=== PATIENT | female | born 1935 | race Caucasian/White ===

== ENCOUNTER 2016-08-13 16:40 | Inpatient (IN) ==
[2016-08-13] MEDS ORDERED: SODIUM CHLORIDE 0.9% 1,000 ML IV STA (16:55)
--- NOTE | 2016-08-13 17:00 | EKG Report ---
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
[2016-08-13] MEDS ORDERED: MAGNESIUM SULF RIDER 2 GM in PREMIX 1 EACH IV PRN (17:09)
[2016-08-13] MEDS ORDERED: MAGNESIUM SULF RIDER 4 GM in PREMIX 1 EACH IV PRN (17:09)
--- NOTE | 2016-08-13 17:27 | Emergency Department Note ---
Edin Centeno Brittany, am scribing for, and in the presence of, Beatrice James DO 17:11. Erika Centeno Whitney, DO, personally performed the services described in this documentation, ascribed by Loraine Jesus in my presence, and it is both accurate and complete 727 . Arrival - Arrival Chief Complaint: Arrhythmia/Palpitations ED Nursing Triage Note: pt was transfered from [facility] for a fib. pt has been taken of amiodarone. pt went to [facility] c/o sob and palpitations Mode of Arrival: Stretcher Limitations: No Limitations Source: Patient, RN Notes Reviewed - History of Present Illness HPI Narrative: Patient is a 81 y/o WF with COPD on home O2, DVT on warfarin and known afib seen by Carlos Enrique presenting to the ED from EMS from [facility] for further evaluation of Afib with RVR nonresponsive to diltziem. Patient reports that she initially presented to [facility] earlier today s/p feeling what she describes as some chest discomfort, dizziness and Nausea around 1pm. Patient denies any fever, diaphoresis, SOB, edema of lower extremities, vomiting or urinary sxs. Patient while at [facility] received a bolus of NS and Cardizem 14 mg with initial effect but then BP went into 60s and HR went back up to 160s. Pt reports she feels better than at 1pm today but still has some dizziness that she describes as light headed. In room her current blood pressure if 88/64 mmHg still currently in Afib with RVR. While obtaining a EKG reading, patient was noted to have a spontaneous conversion with which rate decreased to 69 bpm, but patient continued to remain in Atrial Fibrillation. She recently saw Dr Monaco this past Wednesday with which she was told things were fine. She notes that she was taken off of Amiodarone about a year ago. She currently is on Warfarin. Patient denies any history of HI. Patient is dependent on at home oxygen secondary to COPD. Patient is a former smoker, cessation was approximately 22 years ago. Patient has no other complaint/pain in the ED at this time. Onset (ago): hour(s) (4) Consistency: constant Allergies/Adverse Reactions: Allergies Allergy/AdvReac Type Severity Reaction Status Date / Time No Known Allergies Allergy Verified 06/06/15 08:30 Home Medications: Home Medications Medication Instructions Recorded Confirmed Type Ipratropium/Albuterol Inhaler 1 puff INH TID 06/22/14 02/27/16 History [Combivent Respimat Inhaler] Meclizine HCl 25 mg PO DIRECTED PRN 06/22/14 02/27/16 History dilTIAZem HCl [Diltiazem ER] 120 mg PO DAILY 06/22/14 03/10/16 History Warfarin [Coumadin] 3 mg PO DAILY@1800 06/06/15 02/27/16 History Bumetanide Tab [Bumex Tab] 1 mg PO MOWEFR 03/10/16 03/10/16 History Citalopram Hydrobromide [Celexa] 10 mg PO DAILY 03/10/16 03/10/16 History Dexamethasone [Dexamethasone Tab] 2 mg PO DAILY 03/10/16 03/10/16 History Gabapentin Cap/Tab [Neurontin 600 mg PO BEDTIME 03/10/16 03/10/16 History Cap/Tab] Metoclopramide Tab [Reglan Tab] 5 mg PO Q8H PRN 03/10/16 03/10/16 History Omeprazole [Prilosec] 20 mg PO BEDTIME 03/10/16 03/10/16 History Umeclidinium Brm/Vilanterol Tr 1 puff INH DAILY 03/10/16 03/10/16 History [Anoro Ellipta] Review of System - Review of System 12 point system: reviewed and no additional remarkable complaints except as stated - Review of System Constitutional: Absent: chills, diaphoresis, fever Eyes: Absent: vision change Head/Ears/Nose/Throat: Absent: nasal drainage, sore throat Respiratory: Present: respiratory distress Cardiovascular: Present: chest pain, palpitations Gastrointestinal: Absent: abdominal pain, nausea, vomiting, diarrhea, constipation Genitourinary female: Absent: dysuria, frequency, urgency Musculoskeletal: Absent: arm pain, back pain, leg pain, neck pain Skin: Absent: rash Neurological: Absent: headache Psychiatric: Absent: anxiety, depression Hematological/Lymphatic: Absent: easy bleeding, easy bruising Medical,Surgical,& Family Hx - Medical History Cardio: History of: Cardiac Dysrhythmia (A-FIB), Hypertension, Cardiovascular Problems (hx.of tachycardia, palpitations) Neurology: No history of: Seizures HEENT: History of: Eye Problem (cataract surgery) Respiratory: History of: Asthma, COPD, Respiratory Problems (SLEEPS WITH O2) Genitourinary: No history of: Bladder Problem, Kidney Stones Gastrointestinal: History of: Gastrointestinal Cancer (80% of colon was removed 5 years ago), GI Problems (dysphagia) Other: History of: Cancer (hx gastric cancer) - Surgical History Cardiac Surgeries: Patient Denies: Cardiac Catheterization HEENT Surgeries: Surgical HX of: Eye Surgery Patient denies: Tonsilectomy & Adenoidectomy Abdominal Surgeries: Surgical HX of: Abdominal Surgery (removed 80% of stomach) , Appendectomy, Colonoscopy, EGD Patient denies: Cholecystectomy Reproductive Surgeries: Surgical HX of;: Hysterectomy Orthopedic Surgeries: Patient denies;: Total Hip Replacement, Total Knee Replacement - Family History Family History: Reports;: Family Cancer (brother-bladder ca), Family Diabetes ( mother), Family Heart Disease (father-heart attack, sister-heart attack) - Social History Smoking Status: Never smoker Frequency of Alcohol Use: None Type of Drug Use: None Exam Vital Signs: Vital Signs Temperature 98.3 F 08/13/16 16:31 Pulse Rate 72 08/13/16 17:17 Respiratory Rate 15 08/13/16 17:17 Blood Pressure 87/54 08/13/16 17:17 O2 Sat by Pulse Oximetry 100 08/13/16 17:17 - General General appearance: alert, in no apparent distress - Head Head exam: Present: atraumatic, normocephalic, normal inspection - Eye Eye exam: Present: normal appearance, PERRL, EOMI - ENT ENT exam: Present: normal exam, normal oropharynx - Neck Neck exam: Present: normal inspection, full ROM, trachea midline - Chest Chest inspection: Present: normal inspection, symmetric chest wall rise - Respiratory Respiratory exam: Absent: normal lung sounds bilaterally (patient is oxygen dependent via nasal cannula at home secondary to COPD hx, breath sounds are difficult to hear) - Cardiovascular Cardiovascular exam: Present: regular rate, irregular rhythm. Absent: normal rhythm, normal heart sounds (heart sounds are distant upon auscultation) - Abdominal Exam Abdominal exam: Present: soft, normal bowel sounds. Absent: tenderness - Extremities Exam Extremities exam: Present: normal inspection. Absent: pedal edema - Back Exam Back exam: Present: normal inspection - Neurological Exam Neurological exam: Present: alert, oriented X3, CN II-XII intact. Absent: motor sensory deficit - Psychiatric Psychiatric exam: Present: normal affect, normal mood - Skin Skin exam: Present: warm, dry Course - Reevaluation(s) Reevaluation #1: upon second EKG pt noted to have spontaneous conversion from rate of 130s to rate of 69 and symptoms are now gone. Pt given no medication in ED. started on 1L bolus slowly for BP. - Consultations Consultation #1: Dr Ravi called for obs telemetry admission. Results - EKG EKG results: interpreted by ERMD, normal ST/T EKG shows: atrial fibrillation (First EKG showed rate of 127 bpm, Atrial Fibrillation with RVR; Second EKG contained too much artifact; Third EKG showed spontaneous conversion to a rate of 69 bpm, but still in Atrial Fibrillation) Disposition Clinical Impression: Atrial fibrillation with rapid ventricular response Case discussed with: patient Disposition: Still a Patient Condition: Stable
[2016-08-13 17:30] LABS: Basophils % 1.9 % (0.0-0.8); Eosinophils % 1.3 % (0.00-10.9); Hematocrit 37.9 VOL% (35.7-47.0); Lymphocytes # 0.6 10*3/uL (1.4-4.0); Lymphocytes % 37.6 % (21.3-54.2); Mean Corpuscular HGB Conc 31.7 GM/DL (32-36); Mean Corpuscular Hemoglobin 28 PG (27-34); Mean Corpuscular Volume 87.5 FL (87-102); Mean Platelet Volume 9.9 FL (9.6-12.0); Monocytes # 0.3 10*3/uL (0.11-0.8); Monocytes % 15.9 % (1.7-12.7); Neutrophils # 0.7 10*3/uL (1.4-7.4); Neutrophils % 43.3 % (38.7-73.9); Platelet Count 173 T/CUMM (130-400); Red Blood Count 4.33 MC/CUMM (3.8-5.5); Red Cell Distribution Width 13.6 % (9.3-17.3); White Blood Count 1.6 T/CUMM (4-12)
[2016-08-13 18:00] LABS: INR 1.9; PT Patient Result 20.6 SECS; Partial Thromboplastin Time 29.6 SECS (0-40)
[2016-08-13 18:02] LABS: Calcium 8.2 MG/DL (8.5-10.1); Osmolality,Calculated 284.8 MOS/KG (273-304); Potassium 4.7 MMOL/L (3.5-5.1)
[2016-08-13] MEDS ORDERED: ACETAMINOPHEN 325 MG TABLET PO PRN (18:28)
[2016-08-13] MEDS ORDERED: DOCUSATE SODIUM 100 MG CAPSULE PO PRN (18:28)
[2016-08-13 19:19] LABS: Band Neutrophils 1 % (0-10); Lymphocytes 48 % (20-55); Platelet Estimate Normal; Poikilocytosis Slight; Reactive Lymphocytes Few; Segmented Neutrophils 40 % (50-85); Smudge Cells Few; Total Cells Counted 100
[2016-08-13 19:20] LABS: Burr Cells Few; Spherocytes Few
[2016-08-13] MEDS: ALBUTEROL/IPRATROPIUM 3 ML NEB RESP TX SCH (19:26)
[2016-08-13] MEDS: GABAPENTIN 600 MG TABLET PO SCH (21:19)
[2016-08-13] MEDS: ASCORBIC ACID 500 MG TABLET PO SCH (21:20)
[2016-08-13] MEDS: PANTOPRAZOLE 40 MG TABLET PO SCH (21:20)
[2016-08-14 05:36] LABS: Basophils % 2.1 % (0.0-0.8); Eosinophils # 0.2 10*3/uL (0.0-0.87); Eosinophils % 7.7 % (0.00-10.9); Hematocrit 34.3 VOL% (35.7-47.0); Hemoglobin 10.7 GM/DL (12.0-16.0); Lymphocytes # 1.3 10*3/uL (1.4-4.0); Lymphocytes % 66.2 % (21.3-54.2); Mean Corpuscular HGB Conc 31.2 GM/DL (32-36); Mean Corpuscular Hemoglobin 27 PG (27-34); Mean Corpuscular Volume 87.9 FL (87-102); Mean Platelet Volume 10.6 FL (9.6-12.0); Monocytes # 0.4 10*3/uL (0.11-0.8); Neutrophils # 0.1 10*3/uL (1.4-7.4); Platelet Count 173 T/CUMM (130-400); Red Cell Distribution Width 13.8 % (9.3-17.3)
[2016-08-14 05:38] LABS: INR 1.8
[2016-08-14 05:46] LABS: PT Patient Result 20.1 SECS
[2016-08-14 06:33] LABS: Eosinophils 8 % (0-10); Lymphocytes 69 % (20-55); Segmented Neutrophils 4 % (50-85); Total Cells Counted 100
[2016-08-14 06:34] LABS: Hypochromasia 1+; Microcytosis 1+; Ovalocytes Slight; Platelet Estimate Adequate
--- NOTE | 2016-08-14 07:05 | EKG Report ---
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
--- NOTE | 2016-08-14 07:15 | EKG Report ---
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
--- NOTE | 2016-08-14 07:52 | Cardiology History & Physical ---
Assessment and Plan - Time spent with patient Time spent with patient: Greater than 30 minutes (1) Paroxysmal a-fib Status: Chronic Assessment and plan: SEE PLAN OF CARE LISTED BELOW Current Visit: Yes (2) Atrial fibrillation with rapid ventricular response Status: Resolved Assessment and plan: SEE PLAN OF CARE LISTED BELOW Current Visit: Yes (3) COPD (chronic obstructive pulmonary disease) Status: Chronic Assessment and plan: SEE PLAN OF CARE LISTED BELOW Current Visit: Yes (4) On home oxygen therapy Status: Chronic Assessment and plan: SEE PLAN OF CARE LISTED BELOW Current Visit: Yes (5) History of DVT (deep vein thrombosis) Status: Chronic Assessment and plan: SEE PLAN OF CARE LISTED BELOW Current Visit: Yes (6) Former smoker Status: Chronic Assessment and plan: SEE PLAN OF CARE LISTED BELOW Current Visit: Yes (7) Chronic anticoagulation Status: Chronic Assessment and plan: SEE PLAN OF CARE LISTED BELOW Current Visit: Yes History of Present Illness Chief complaint: Atrial fibrillation with rapid ventricular response History of present illness: Professor Of History: Dr. Monaco PCP: Dr. Ospina Ms. Ray is a 81 year old female without known history of coronary artery disease, routinely followed by Dr. Monaco. Patient has cardiac risk factors significant for former smoker (quit 22 years ago), family history of coronary artery disease (father from myocardial infarction at age 91 and sister had myocardial infarction age 95) and sedentary lifestyle. Patient has a past medical history of paroxysmal atrial fibrillation (chronically anticoagulated with Coumadin), COPD (with home oxygen) and DVT. Patient last saw Dr. Josue Monaco August 11, 2016. At that time, she was doing well without any complaints of palpitations or heart racing. Patient was in her usual state of health until yesterday when she developed palpitations and heart racing while at home. She reports also experiencing mild chest discomfort, nausea and lightheadedness with palpitations. She tells me that this has happened before as she has a history of paroxysmal atrial fibrillation. She confirms shortness of breath. However, this is a chronic problem as she has COPD and requires oxygen nightly. Her palpitations continued to progress and she felt that she needed to be further evaluated in the emergency department. She presented to [facility] where she was found to be in atrial fibrillation with rapid ventricular response. Subsequently, she received Cardizem bolus and was transferred to [facility] where she could be further evaluated. Upon arrival to [facility] emergency room, she was noted to be in atrial fibrillation with rapid ventricular response, heart rate of 127. Shortly thereafter, she spontaneously converted. Blood pressure was noted to be 88/64 upon arrival to [facility] ER. Patient reports that she has a history of borderline hypotension. In the past, she has been on diltiazem. However, several months ago Dr. Monaco had to discontinue this medication due to hypotension. Patient has been admitted to cardiology's service and housed on the telemetry floor. Patient was seen and examined on the telemetry unit. She is currently in normal sinus rhythm with occasional PACs. Heart rates in the 60s. Blood pressure borderline low with systolic blood pressures ranging in the 80s. She is currently without complaints. INR this morning is 1.8. Electrolytes are stable with potassium 4.7 and magnesium 2.0. TSH within normal limits. Patient has history of paroxysmal atrial fibrillation. She spontaneously converted to normal sinus rhythm last night. In the past, patient has been on diltiazem. However, a couple of months ago this was discontinued due to hypotension. This hospitalization, patient has been borderline hypotensive with systolic blood pressure ranging in the 80s. At this point, I am hesitant to initiate AV adia blocking agents as patient's blood pressure will not allow. I will discuss this with Dr. Lopez and await his additional recommendations. Patient is on Coumadin for stroke prevention. INR is 1.8. We will continue patient's Coumadin and monitor INR daily. Further plan and addendum to follow per Dr. Jha. ASSESSMENT/PLAN: 1. ATRIAL FIBRILLATION WITH RVR - Patient has history of paroxysmal atrial fibrillation. She spontaneously converted to normal sinus rhythm last night. In the past, patient has been on diltiazem. However, a couple of months ago this was discontinued due to hypotension. This hospitalization, patient has been borderline hypotensive with systolic blood pressure ranging in the 80s. At this point, I am hesitant to initiate AV adia blocking agents as patient's blood pressure will not allow. I will discuss this with Dr. Lopez and await his additional recommendations. Patient is on Coumadin for stroke prevention. INR is 1.8. We will continue patient's Coumadin and monitor INR daily. 2. CHRONIC ANTICOAGULATION - Patient is chronically anticoagulated with Coumadin as she has a history of paroxysmal atrial fibrillation and DVT. We will continue patient's Coumadin and monitor her INR daily. INR today is 1.8. 3. COPD, ON HOME OXYGEN - This is clinically stable this admission. Will continue patient's home medications. 4. HISTORY OF DVT - Continue Coumadin. Daily INR. 5. FORMER SMOKER - Patient is a former smoker. Reports that she quit approximately 22 years ago. Home Medications Medication Instructions Recorded Confirmed Type Ipratropium/Albuterol Inhaler 1 puff INH TID 06/22/14 08/13/16 History [Combivent Respimat Inhaler] Warfarin [Coumadin] 3 mg PO DAILY@1800 06/06/15 08/13/16 History Citalopram Hydrobromide [Celexa] 10 mg PO DAILY 03/10/16 08/13/16 History Gabapentin Cap/Tab [Neurontin 600 mg PO BEDTIME 03/10/16 08/13/16 History Cap/Tab] Omeprazole [Prilosec] 20 mg PO BEDTIME 03/10/16 08/13/16 History Umeclidinium Brm/Vilanterol Tr 1 puff INH DAILY 03/10/16 08/13/16 History [Anoro Ellipta] Bumetanide [Bumetanide] 1 mg PO MOWEFR 08/13/16 08/13/16 History Allergies Allergy/AdvReac Type Severity Reaction Status Date / Time No Known Allergies Allergy Verified 06/06/15 08:30 - Constitutional Constitutional: Present: fatigue. Absent: daytime sleepiness, fever(s), frequent falls, headache(s), weakness, weight gain, weight loss - Cardiovascular Cardiovascular: Present: as per HPI, diaphoresis, dyspnea (Chronic, patient has COPD with home oxygen.), lightheadedness, palpitations. Absent: edema, radiating jaw, neck or arm pain, orthopnea, PND - Respiratory Respiratory: Present: cough (Chronic), dyspnea (Chronic). Absent: hemoptysis, wheezing, snoring, pain on inspiration, change in phlegm color - Gastrointestinal Gastrointestinal: Present: nausea. Absent: abdominal pain, change in bowel habits, coffee ground emesis, constipation, heartburn, hematemesis, hematochezia , loose stools, melena, vomiting - Neurological Neurological: Present: dizziness. Absent: abnormal gait, abnormal speech, behavioral changes, frequent falls, numbness, paresthesias, syncope Medical,Surgical,& Family Hx - Medical History Cardio: History of: Cardiac Dysrhythmia (A-FIB), Cardiovascular Problems (hx.of tachycardia, palpitations) HEENT: History of: Eye Problem (cataract surgery) Respiratory: History of: Asthma, COPD, Respiratory Problems (SLEEPS WITH O2) Genitourinary: No history of: Bladder Problem, Kidney Stones Gastrointestinal: History of: GERD, Gastrointestinal Cancer (80% of colon was removed 5 years ago), GI Problems (dysphagia) Other: History of: Cancer (hx gastric cancer) - Surgical History Cardiac Surgeries: Patient Denies: Cardiac Catheterization HEENT Surgeries: Surgical HX of: Eye Surgery Patient denies: Tonsilectomy & Adenoidectomy Abdominal Surgeries: Surgical HX of: Abdominal Surgery (removed 80% of stomach) , Appendectomy, Colonoscopy, EGD Patient denies: Cholecystectomy Reproductive Surgeries: Surgical HX of;: Hysterectomy Orthopedic Surgeries: Patient denies;: Total Hip Replacement, Total Knee Replacement - Family History Family History: Reports;: Family Cancer (brother-bladder ca), Family Diabetes ( mother), Family Heart Disease (father-heart attack, sister-heart attack) - Social History Smoking Status: Former smoker Frequency of Alcohol Use: None Type of Drug Use: None Marital Status: Single Lives With:: Sibling Functional capacity: independent ambulation Cardiology Physical Exam - Constitutional Vitals: Vital Signs Temp Pulse Resp BP Pulse Ox 96.7 F L 59 L 18 82/53 93 L 08/14/16 04:00 08/14/16 04:00 08/14/16 06:00 08/14/16 04:00 08/14/16 04:00 Intake and Output 08/13/16 08/14/16 08/14/16 22:59 06:59 14:59 Intake Total 1240 / 1240 0 / 0 Output Total 725 / 725 0 / 0 Balance 515 / 515 0 / 0 Intake: IV 1000 / 1000 Ns 1,000 ml @ 500 mls/hr 1000 / 1000 IV 1X ED BOLUS STA Rx#: [id number] Oral 240 / 240 0 / 0 Output: Urine 725 / 725 0 / 0 Other: Voiding Method Urinal Weight 128 lb 1.6 oz 128 lb Exam: General: Appears well with no apparent distress. Pleasant and cooperative. Appears comfortable. HEENT: PERRL, normocephalic, atraumatic. Mucous membranes moist. No jaundice noted. Conjunctiva moist and clear, sclerae anicteric Neck: No JVD/HJR, no thyromegaly or lymphadenopathy noted. No carotid bruit appreciated Cardiac: Regular rate and rhythm. No murmur rub or gallop. Lungs: Clear to auscultation without accessory muscle use to assist the respiratory pattern. No wheezing auscultated. Requiring oxygen via nasal cannula. Abdomen: Soft, bowel sounds normoactive. Nontender and nondistended. Extremities: No clubbing, cyanosis noted. No edema noted. Upper extremity pulses 2+. Lower extremity pulses 2+. Capillary refill less than 3 seconds. Skin: No unusual lesions or rashes. No skin breakdown appreciated. Neuro: Awake, alert and oriented 3. Moves all extremities well without hemiparesis or paralysis. No essential tremor is appreciated. Result/EKG - Labs CBC & BMP: 08/14/16 04:12 08/13/16 17:13 Lab Results: I have reviewed the past 24 hour labs Labs: Laboratory Results - last 24 hr 08/13/16 08/13/16 08/13/16 17:13 17:13 17:20 WBC 1.6 L RBC 4.33 Hgb 12.0 Hct 37.9 MCV 87.5 MCH 28 MCHC 31.7 L RDW 13.6 Plt Count 173 MPV 9.9 Neut % (Auto) 43.3 Lymph % (Auto) 37.6 Rush % (Auto) 15.9 H Eos % (Auto) 1.3 Baso % (Auto) 1.9 H Neut # (Auto) 0.7 L Lymph # (Auto) 0.6 L Rush # (Auto) 0.3 Eos # (Auto) 0.0 Baso # (Auto) 0.0 Total Counted 100 Immature Gran % 0.0 Nucleated RBC % 0.0 Immature Gran # 0.00 Segmented Neutrophils 40 L Band Neutrophils 1 Lymphocytes 48 Monocytes 11 Eosinophils Basophils Nucleated RBCs # 0.00 Atypic/Reactive Lymphs Few Smudge Cells Few Platelet Estimate Normal Hypochromasia Poikilocytosis Slight Microcytosis Spherocytes Few Ovalocytes Antoinette Cells Few INR 1.9 PT Patient/Control Mix 20.6 Circ Anticoag PTT 29.6 Sodium 144 Potassium 4.7 Chloride 111 H Carbon Dioxide 28 Anion Gap 9.7 BUN 11 Creatinine 0.70 GFR Calculation 78 BUN/Creatinine Ratio 15.00 Glucose 98 Calculated Osmolality 284.8 Calcium 8.2 L Magnesium 2.0 TSH 3rd Generation 08/14/16 08/14/16 08/14/16 04:12 04:12 04:12 WBC 2.0 L RBC 3.90 Hgb 10.7 L Hct 34.3 L MCV 87.9 MCH 27 MCHC 31.2 L RDW 13.8 Plt Count 173 MPV 10.6 Neut % (Auto) 4.0 L Lymph % (Auto) 66.2 H Rush % (Auto) 20.0 H Eos % (Auto) 7.7 Baso % (Auto) 2.1 H Neut # (Auto) 0.1 L Lymph # (Auto) 1.3 L Rush # (Auto) 0.4 Eos # (Auto) 0.2 Baso # (Auto) 0.0 Total Counted 100 Immature Gran % 0.0 Nucleated RBC % 0.0 Immature Gran # 0.00 Segmented Neutrophils 4 L Band Neutrophils Lymphocytes 69 H Monocytes 17 H Eosinophils 8 Basophils 2.0 H Nucleated RBCs # 0.00 Atypic/Reactive Lymphs Smudge Cells Platelet Estimate Adequate Hypochromasia 1+ Poikilocytosis Microcytosis 1+ Spherocytes Ovalocytes Slight Donald Cells INR 1.8 PT Patient/Control Mix 20.1 Circ Anticoag PTT Sodium Potassium Chloride Carbon Dioxide Anion Gap BUN Creatinine GFR Calculation BUN/Creatinine Ratio Glucose Calculated Osmolality Calcium Magnesium TSH 3rd Generation 0.448 Quality Measures - VTE Contraindication to Pharmacological VTE Prophylaxis: Coagulopathy
[2016-08-14] MEDS: ALBUTEROL/IPRATROPIUM 3 ML NEB RESP TX SCH ×3 (08:30→19:10)
[2016-08-14] MEDS ORDERED: ANORO ELLIPTA INH SCH (09:00)
[2016-08-14] MEDS ORDERED: CITALOPRAM 20 MG TABLET PO SCH (09:00)
[2016-08-14] MEDS: ASCORBIC ACID 500 MG TABLET PO SCH ×2 (09:00→20:38)
--- NOTE | 2016-08-14 09:10 | XRay Report ---
XR chest 1V portable Indication: Shortness of breath Comparison: 13 August 2016 Findings: The heart and mediastinum are stable in size and configuration. Multiple clips are present in the right hilum from previous surgery. The pulmonary vascularity is slightly increased with bilateral increased interstitial lung density. Small amount of left lower lung increased density seen in the costophrenic angle. No other lung infiltrates, effusions, pneumothorax or other abnormality is demonstrated. Impression: Findings suggest mild cardiac decompensation. Small amount of increased left lower lung density, could indicate pneumonia. No other acute findings. PROCEDURE INTERPRETED AT [facility] DEPARTMENT OF RADIOLOGY Final Report Signed by: Dr. Vini David
[2016-08-14 09:59] LABS: Apearance,Urine CLEAR (Clear); Bilirubin,Urine Negative (Negative); Blood, Urine Negative (Negative); Glucose,Urine (UA) Negative (Negative); Hyaline Casts,Urine 2 /LPF (0-3); Ketones,Urine Negative (Negative); Mucus,Urine Few /LPF (Occasional); Nitrite,Urine Negative (Negative); Protein,Urine Negative; RBC,Urine 1 /HPF (0-4); Squamous Epithelial Cell,Urine Occasional /HPF (0-10); Urine Color Yellow (Yellow); Urine Specific Gravity 1.018 (1.001-1.035); Urine Urobilinogen < 2.0 EU/DL (0.2-1.0); WBC,Urine 1 /HPF (0-6)
[2016-08-14] MEDS: DILTIAZEM INJ 100 MG in SODIUM CHLORIDE 0.9% 100 ML IV SCH ×2 (11:20→17:30)
--- NOTE | 2016-08-14 11:47 | EKG Report ---
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
[2016-08-14] MEDS ORDERED: WARFARIN 3 MG TABLET PO SCH (18:00)
[2016-08-14] MEDS: GABAPENTIN 600 MG TABLET PO SCH (20:37)
[2016-08-14] MEDS: FLECAINIDE 50 MG TABLET PO SCH (20:38)
[2016-08-14] MEDS: PANTOPRAZOLE 40 MG TABLET PO SCH (20:38)
[2016-08-15 04:54] LABS: Eosinophils # 0.2 10*3/uL (0.0-0.87); Hematocrit 33.4 VOL% (35.7-47.0); Hemoglobin 10.5 GM/DL (12.0-16.0); Lymphocytes # 1.2 10*3/uL (1.4-4.0); Lymphocytes % 59.8 % (21.3-54.2); Mean Corpuscular HGB Conc 31.4 GM/DL (32-36); Mean Corpuscular Hemoglobin 28 PG (27-34); Mean Corpuscular Volume 87.7 FL (87-102); Mean Platelet Volume 10.2 FL (9.6-12.0); Monocytes # 0.3 10*3/uL (0.11-0.8); Monocytes % 17.1 % (1.7-12.7); Neutrophils # 0.2 10*3/uL (1.4-7.4); Neutrophils % 12.1 % (38.7-73.9); Platelet Count 160 T/CUMM (130-400); Red Blood Count 3.81 MC/CUMM (3.8-5.5); Red Cell Distribution Width 13.9 % (9.3-17.3)
[2016-08-15 05:19] LABS: Calcium 8.4 MG/DL (8.5-10.1); Calcium 8.5 MG/DL (8.5-10.1); Magnesium 1.9 MG/DL (1.8-2.4); Osmolality,Calculated 284.8 MOS/KG (273-304); Potassium 3.9 MMOL/L (3.5-5.1)
[2016-08-15 05:21] LABS: Band Neutrophils 1 % (0-10); Eosinophils 8 % (0-10); Lymphocytes 69 % (20-55); Myelocytes 1 %; Platelet Estimate Normal; Segmented Neutrophils 13 % (50-85); Total Cells Counted 99
[2016-08-15] MEDS: ALBUTEROL/IPRATROPIUM 3 ML NEB RESP TX SCH (07:19)
[2016-08-15 07:30] VITALS: BP 123/59
--- NOTE | 2016-08-15 07:44 | EKG Report ---
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
[2016-08-15] MEDS: FLECAINIDE 50 MG TABLET PO SCH (09:09)
[2016-08-15] MEDS: ASCORBIC ACID 500 MG TABLET PO SCH (09:09)
--- NOTE | 2016-08-15 09:24 | Cardiology Progress Note ---
Assessment and Plan - Time spent with patient Time spent with patient: Less than 30 minutes (1) COPD (chronic obstructive pulmonary disease) Status: Chronic Current Visit: Yes (2) History of DVT (deep vein thrombosis) Status: Chronic Current Visit: Yes (3) Former smoker Status: Chronic Current Visit: Yes (4) Chronic anticoagulation Status: Chronic Current Visit: Yes (5) Paroxysmal a-fib Status: Chronic Current Visit: Yes Cardiology - PN: Subj Interval history: The patient remains in normal sinus rhythm and has no complaints she is again asking for discharge. Her EKG today looks good her QT interval yesterday was 410 msec today is 411. She has not had any more atrial fibrillation. She has now received 2 doses of flecainide. She is desiring to go home I would really feel better if she would wait for 5 doses to ensure her QT interval is not prolonged and there is no significant abnormalities or dysrhythmias. Exam (Progress Note) - Constitutional Vitals: Period Temp Pulse Resp BP Sys/[place] Pulse Ox Last 24 Hr 97.9 F-99.4 F 59-81 16-20 110-123/56-71 93-98 General appearance: normal weight - Head Head exam: Present: normal inspection - Eye Eye exam: Present: EOMI Pupils: Present: ELVIN - Neck Neck exam: Present: normal inspection - Respiratory Respiratory exam: Present: clear to auscultation bilaterally - Cardiovascular Cardiovascular exam: Present: regular rate and rhythm - GI/Abdominal GI/Abdominal exam: Present: normal bowel sounds Result/EKG - Labs CBC & BMP: 08/15/16 03:50 08/15/16 03:50 Labs: Laboratory Results - last 24 hr 08/14/16 08/15/16 08/15/16 09:53 03:50 03:50 WBC 2.0 L RBC 3.81 Hgb 10.5 L Hct 33.4 L MCV 87.7 MCH 28 MCHC 31.4 L RDW 13.9 Plt Count 160 MPV 10.2 Neut % (Auto) 12.1 L Lymph % (Auto) 59.8 H [place] % (Auto) 17.1 H Eos % (Auto) 9.0 Baso % (Auto) 2.0 H Neut # (Auto) 0.2 L Lymph # (Auto) 1.2 L [place] # (Auto) 0.3 Eos # (Auto) 0.2 Baso # (Auto) 0.0 Total Counted 99 Immature Gran % 0.0 Nucleated RBC % 0.0 Immature Gran # 0.00 Segmented Neutrophils 13 L Band Neutrophils 1 Lymphocytes 69 H Monocytes 7 Eosinophils 8 Myelocytes 1 Nucleated RBCs # 0.00 Platelet Estimate Normal 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 Sodium 144 Potassium 3.9 Chloride 109 H Carbon Dioxide 29 Anion Gap 9.9 BUN 12 Creatinine 0.50 L GFR Calculation 87 BUN/Creatinine Ratio 24.00 H Glucose 82 Calculated Osmolality 284.8 Calcium 8.4 L Magnesium 1.9 Urine Color Yellow Urine Appearance Clear Urine pH 5.0 Ur Specific [place] 1.018 Urine Protein Negative Urine Glucose (UA) Negative Urine Ketones Negative Urine Blood Negative Urine Nitrate Negative Urine Bilirubin Negative Urine Urobilinogen < 2.0 H Urine Leukocytes Negative Urine RBC 1 Urine WBC 1 Ur Squamous Epith Cells Occasional Hyaline Casts 2 Urine Mucus Few Ur Culture Indicated? Not indicated 08/15/16 03:50 WBC RBC Hgb Hct MCV MCH MCHC RDW Plt Count MPV Neut % (Auto) Lymph % (Auto) [place] % (Auto) Eos % (Auto) Baso % (Auto) Neut # (Auto) Lymph # (Auto) [place] # (Auto) Eos # (Auto) Baso # (Auto) Total Counted Immature Gran % Nucleated RBC % Immature Gran # Segmented Neutrophils Band Neutrophils Lymphocytes Monocytes Eosinophils Myelocytes Nucleated RBCs # Platelet Estimate Pappenheimer Bodies Sodium 144 Potassium 3.9 Chloride 109 H Carbon Dioxide 30 Anion Gap 8.9 BUN 12 Creatinine 0.50 L GFR Calculation 87 BUN/Creatinine Ratio 24.00 H Glucose 81 Calculated Osmolality 284.8 Calcium 8.5 Magnesium Urine Color Urine Appearance Urine pH Ur Specific [place] Urine Protein Urine Glucose (UA) Urine Ketones Urine Blood Urine Nitrate Urine Bilirubin Urine Urobilinogen Urine Leukocytes Urine RBC Urine WBC Ur Squamous Epith Cells Hyaline Casts Urine Mucus Ur Culture Indicated? Quality Measures - VTE Contraindication to Pharmacological VTE Prophylaxis: Coagulopathy
--- NOTE | 2016-08-15 09:44 | Discharge Summary ---
Hospital Course - Hospital Course Hospital Course: Patient came to the hospital with A. fib with RVR. She has had problems with both bradycardia and hypotension on AV adia blocking agents. She is anticoagulated with warfarin and was subtherapeutic. She was started on 50 mg of flecainide twice daily and remained in sinus rhythm after spontaneous conversion with IV Cardizem at the outside hospital. She had 3 doses of flecainide and had no change in her EKG her QTc interval was 410 and 411 seconds respectively. She has been hemodynamically stable her blood pressure heart rate have both improved. She will be discharged home she will follow-up in [address] Monaco with EKG. We will also have her INR rechecked. - Time spent with patient Time with patient DS: Less than 30 minutes Diagnosis - Discharge Diagnosis (1) COPD (chronic obstructive pulmonary disease) Status: Chronic (2) History of DVT (deep vein thrombosis) Status: Chronic (3) Former smoker Status: Chronic (4) Chronic anticoagulation Status: Chronic (5) Paroxysmal a-fib Status: Chronic (6) Hypotension Status: Chronic (7) Bradycardia Status: Chronic Specialty Discharge - Follow Up or Referrals Follow up with: Markie Monaco MD [Physician] - 1 Week (ECG, chem 7, mg cbc and INR clinic) Discharge Plan - Discharge Data Disposition: Disch To Home/Self Care Condition at Discharge: Stable Discharge Diet: advance to your usual diet Activity: resume usual activities as tolerated Hygiene: no restrictions, may shower, may tub bathe, keep area(s) dry Weight Bearing at Discharge: full weight bearing Driving: no restrictions Contact your physician if you experience:: fever over 101, Difficulty voiding, Redness or swelling, Nausea/Vomiting, Shortness of breath, Bleeding - Discharge Medications New Acetaminophen Tab [Tylenol Tab] 325 mg PO Q4H PRN tablet PRN Reason: fever, headache/body aches Ascorbic Acid Tab [Vitamin C Tab] 1,000 mg PO BID tablet Flecainide [Tambocor] 50 mg PO BID #180 tablet Continue Ipratropium/Albuterol Inhaler [Combivent Respimat Inhaler] 1 puff INH TID Warfarin [Coumadin] 3 mg PO DAILY@1800 Gabapentin Cap/Tab [Neurontin Cap/Tab] 600 mg PO BEDTIME Omeprazole [Prilosec] 20 mg PO BEDTIME Bumetanide 1 mg PO MOWEFR Umeclidinium Brm/Vilanterol Tr [Anoro Ellipta] 1 puff INH DAILY Discontinued Citalopram Hydrobromide [Celexa] 10 mg PO DAILY - Follow Up or Referral - Forms/Instructions Exam - Constitutional Vitals: Period Temp Pulse Resp BP Sys/Larsen Pulse Ox Last 24 Hr 97.9 F-99.4 F 59-81 16-20 110-123/56-71 93-98 General appearance: normal weight - Head Head exam: Present: normal inspection - Eye Eye exam: Present: EOMI Pupils: Present: ELVIN - ENT ENT exam: Present: normal exam - Neck Neck exam: Present: normal inspection - Respiratory Respiratory exam: Present: clear to auscultation bilaterally - Cardiovascular Cardiovascular exam: Present: regular rate and rhythm - GI/Abdominal GI/Abdominal exam: Present: normal bowel sounds - Extremities Exam Extremities exam: Present: normal inspection - Back Exam Back exam: Present: normal inspection - Neurological Exam Neurological exam: Present: alert, oriented X3 Discharge Results Labs on day of discharge: Labs from last 24 hours 08/15/16 08/15/16 08/15/16 03:50 03:50 03:50 WBC 2.0 L RBC 3.81 Hgb 10.5 L Hct 33.4 L MCV 87.7 MCH 28 MCHC 31.4 L RDW 13.9 Plt Count 160 MPV 10.2 Neut % (Auto) 12.1 L Lymph % (Auto) 59.8 H [place] % (Auto) 17.1 H Eos % (Auto) 9.0 Baso % (Auto) 2.0 H Neut # (Auto) 0.2 L Lymph # (Auto) 1.2 L [place] # (Auto) 0.3 Eos # (Auto) 0.2 Baso # (Auto) 0.0 Total Counted 99 Immature Gran % 0.0 Nucleated RBC % 0.0 Immature Gran # 0.00 Segmented Neutrophils 13 L Band Neutrophils 1 Lymphocytes 69 H Monocytes 7 Eosinophils 8 Myelocytes 1 Nucleated RBCs # 0.00 Platelet Estimate Normal Pappenheimer Bodies Warp Tension Tester Sodium 144 144 Potassium 3.9 3.9 Chloride 109 H 109 H Carbon Dioxide 30 29 Anion Gap 8.9 9.9 BUN 12 12 Creatinine 0.50 L 0.50 L GFR Calculation 87 87 BUN/Creatinine Ratio 24.00 H 24.00 H Glucose 81 82 Calculated Osmolality 284.8 284.8 Calcium 8.5 8.4 L Magnesium 1.9 Urine Color Urine Appearance Urine pH Ur Specific [place] Urine Protein Urine Glucose (UA) Urine Ketones Urine Blood Urine Nitrate Urine Bilirubin Urine Urobilinogen Urine Leukocytes Urine RBC Urine WBC Ur Squamous Epith Cells Hyaline Casts Urine Mucus Ur Culture Indicated? 08/14/16 09:53 WBC RBC Hgb Hct MCV MCH MCHC RDW Plt Count MPV Neut % (Auto) Lymph % (Auto) [place] % (Auto) Eos % (Auto) Baso % (Auto) Neut # (Auto) Lymph # (Auto) [place] # (Auto) Eos # (Auto) Baso # (Auto) Total Counted Immature Gran % Nucleated RBC % Immature Gran # Segmented Neutrophils Band Neutrophils Lymphocytes Monocytes Eosinophils Myelocytes Nucleated RBCs # Platelet Estimate Pappenheimer Bodies Sodium Potassium Chloride Carbon Dioxide Anion Gap BUN Creatinine GFR Calculation BUN/Creatinine Ratio Glucose Calculated Osmolality Calcium Magnesium Urine Color Yellow Urine Appearance Clear Urine pH 5.0 Ur Specific [place] 1.018 Urine Protein Negative Urine Glucose (UA) Negative Urine Ketones Negative Urine Blood Negative Urine Nitrate Negative Urine Bilirubin Negative Urine Urobilinogen < 2.0 H Urine Leukocytes Negative Urine RBC 1 Urine WBC 1 Ur Squamous Epith Cells Occasional Hyaline Casts 2 Urine Mucus Few Ur Culture Indicated? Not indicated - Imaging and Cardiology Cardiology Procedure: other (ECGs read by me.) DS: Provider Date of admission: 08/13/16 17:09 Primary care physician: . No PCP Attending physician on admission: Oc Ravi MD Discharging clinician: Yadi Lopez DO
--- NOTE | 2016-08-17 12:56 | Physician Query Form ---
CLICK EDIT DOCUMENT TO SELECT QUERY ANSWER --> OK --> SIGN Rosalee Parker RN Clinical Bacteriologist [employer]) [phone] (f) [phone] [email or web address] PROVIDERS: Make your selection(s) from the choices in EACH section by typing an "x" and enter comments in the comment section. Please use your independent medical judgment in providing your response. This request does not imply that any particular answer is desired or expected. CLINICAL INDICATORS: (Providers should not edit this section) Based on documentation of "Patient is dependent on at home oxygen secondary to COPD". Based on the above, could you clarify the appropriate diagnosis, if significant , that supports the above abnormalities and additional evaluation, monitoring, and/or treatment rendered: ( ) Pt. has chronic respiratory failure ( ) Pt. does not have chronic respiratory failure ( ) Other, please specify: ( X) Clinically unable to determine COMMENTS: PLEASE ALSO DOCUMENT RESPONSE IN PROGRESS NOTES AND/OR DISCHARGE SUMMARY Use of terms such as suspected, likely, or probable (associated with a specific diagnosis that is being evaluated, monitored, or treated as if it exists) are acceptable and can be restated in the discharge summary if not ruled out. [facility]
== END 2016-08-15 12:25 | disposition home or self-care (01) | DRG 310 ==
LOC: N.ED 16:40 → N.EDINP 17:09 → N.TELES 18:06
PROVIDERS: ADMIT Internal Medicine Cardiovascular Disease; ATTEND Internal Medicine Cardiovascular Disease

== ENCOUNTER 2021-01-17 06:25 | Inpatient (IN) ==
[2021-01-17] MEDS ORDERED: ALBUTEROL/IPRATROPIUM 3 ML NEB RESP TX STA (07:14)
[2021-01-17] MEDS ORDERED: methylPREDNISolone SOD SUC 125 MG/2 ML VIAL IV STA (07:14)
[2021-01-17] MEDS ORDERED: methylPREDNISolone SOD SUC 125 MG/2 ML VIAL ONE (07:26)
[2021-01-17] MEDS ORDERED: ALBUTEROL/IPRATROPIUM 3 ML NEB RESP TX ONE (07:27)
[2021-01-17 07:32] LABS: Basophils % 0.5 % (0.0-0.8); Hematocrit 46.4 VOL% (35.7-47.0); Hemoglobin 13.6 GM/DL (12.0-16.0); Immature Granulocytes % 0.5 %; Immature Granulocytes Absolute 0.01 #; Lymphocytes # 0.3 10*3/uL (1.4-4.0); Lymphocytes % 17.8 % (21.3-54.2); Mean Corpuscular HGB Conc 29.3 GM/DL (32-36); Mean Corpuscular Volume 97.3 FL (87-102); Mean Platelet Volume 9.3 FL (9.6-12.0); Monocytes % 13.5 % (1.7-12.7); Neutrophils % 67.7 % (38.7-73.9); Platelet Count 173 T/CUMM (130-400); Red Blood Count 4.77 MC/CUMM (3.8-5.5); Red Cell Distribution Width 13.3 % (9.3-17.3); White Blood Count 1.9 T/CUMM (4-12)
[2021-01-17 07:41] LABS: Albumin 3.5 G/DL (3.4-5.0); Calcium 9.3 MG/DL (8.5-10.1); Osmolality,Calculated 279.5 MOS/KG (273-304); Potassium 4.2 MMOL/L (3.5-5.1); Total Protein 7.5 G/DL (6.4-8.2)
[2021-01-17 08:07] LABS: Atypical Lymphocytes Few; Band Neutrophils 3 % (0-10); Hypochromasia Slight; Lymphocytes 18 % (20-55); Metamyelocytes 1 %; Ovalocytes Slight; Platelet Estimate Adequate; Polychromasia Slight; Segmented Neutrophils 67 % (50-85); Total Cells Counted 100
[2021-01-17 08:47] LABS: ABG Base Excess 5.7 MMOL/L (-2.5-2.5); ABG HCO3 29.4 MMOL/L (20-26); ABG Oxygen Saturation 93.3 % (95-100); ABG PH 7.332 (7.35-7.45); ABG PO2 72.9 MM HG (80-95)
[2021-01-17 10:07] LABS: ABG Base Excess 6.6 MMOL/L (-2.5-2.5); ABG HCO3 30.2 MMOL/L (20-26); ABG Oxygen Saturation 88.4 % (95-100); ABG PCO2 56.9 MM HG (35-48); ABG PO2 57.2 MM HG (80-95); ABG TCO2 29.7 MMOL/L (23-27)
[2021-01-17] MEDS ORDERED: METOCLOPRAMIDE 5 MG TABLET PO PRN (10:52)
[2021-01-17] MEDS ORDERED: GLUCAGON 1 MG VIAL IM PRN (10:57)
[2021-01-17] MEDS ORDERED: CALCIUM CARBONATE CHEW 500 MG TABLET PO PRN (11:07)
[2021-01-17] MEDS ORDERED: DOCUSATE SODIUM 100 MG CAPSULE PO PRN (11:07)
[2021-01-17] MEDS ORDERED: SIMETHICONE CHEW 125 MG TABLET PO PRN (11:07)
[2021-01-17] MEDS ORDERED: DEXTROSE 50% 25 GM/50 ML SYRINGE IV PRN (11:16)
[2021-01-17] MEDS ORDERED: ENOXAPARIN 40 MG/0.4 ML SYRINGE SUBCUT SCH (11:30)
[2021-01-17] MEDS ORDERED: PANTOPRAZOLE 40 MG TABLET PO ONE (11:55)
[2021-01-17] MEDS ORDERED: CITALOPRAM 20 MG TABLET ONE (11:55)
[2021-01-17] MEDS ORDERED: ENOXAPARIN 40 MG/0.4 ML SYRINGE ONE (11:55)
[2021-01-17] MEDS ORDERED: LEVOFLOXACIN INJ 750 MG/150 ML PREMIX IV ONE (11:56)
[2021-01-17 12:06] LABS: INR 4.1; PT Patient Result 41.5 SECS (10.5-12.0); Partial Thromboplastin Time 33.6 SECS (23.8-32.1)
[2021-01-17] MEDS: FLECAINIDE 50 MG TABLET PO SCH ×2 (12:11→22:14)
[2021-01-17] MEDS: CITALOPRAM 20 MG TABLET PO SCH (12:11)
[2021-01-17] MEDS: LEVOFLOXACIN INJ 750 MG/150 ML PREMIX IV SCH (12:11)
[2021-01-17] MEDS: LACTATED RINGERS 1,000 ML IV SCH ×2 (12:11→22:12)
[2021-01-17] MEDS: PANTOPRAZOLE 40 MG TABLET PO SCH (12:12)
[2021-01-17] MEDS: BUDESONIDE/FORMOTEROL 160-4.5 INHALER 6 GM INH SCH ×2 (12:12→22:16)
[2021-01-17] MEDS: ALBUTEROL/IPRATROPIUM 3 ML NEB RESP TX SCH ×2 (14:30→19:23)
[2021-01-17] MEDS: methylPREDNISolone SOD SUC 40 MG/1 ML VIAL IV SCH ×2 (14:36→23:06)
[2021-01-17] MEDS: ACETAMINOPHEN 325 MG TABLET PO PRN (22:14)
[2021-01-17] MEDS: GABAPENTIN 300 MG CAPSULE PO SCH (22:14)
[2021-01-18] MEDS: ALBUTEROL/IPRATROPIUM 3 ML NEB RESP TX SCH ×4 (00:04→20:10)
[2021-01-18 05:28] LABS: Albumin 2.6 G/DL (3.4-5.0); Bilirubin,Total 0.7 MG/DL (0.20-1.00); Calcium 8.7 MG/DL (8.5-10.1); Osmolality,Calculated 282.4 MOS/KG (273-304); Potassium 4.1 MMOL/L (3.5-5.1); Total Protein 6.7 G/DL (6.4-8.2)
[2021-01-18 05:53] LABS: Hematocrit 41.4 VOL% (35.7-47.0); Hemoglobin 12.4 GM/DL (12.0-16.0); Immature Granulocytes % 0.3 %; Immature Granulocytes Absolute 0.01 #; Lymphocytes # 0.3 10*3/uL (1.4-4.0); Mean Corpuscular Volume 95.8 FL (87-102); Mean Platelet Volume 9.7 FL (9.6-12.0); Monocytes % 5.8 % (1.7-12.7); Neutrophils % 85.9 % (38.7-73.9); Platelet Count 147 T/CUMM (130-400); Red Blood Count 4.32 MC/CUMM (3.8-5.5); Red Cell Distribution Width 13.4 % (9.3-17.3)
[2021-01-18 06:00] LABS: White Blood Count 3.6 T/CUMM (4-12)
[2021-01-18 06:06] LABS: Band Neutrophils 9 % (0-10); Hypochromasia 1+; Lymphocytes 4 % (20-55); Microcytosis 1+; Ovalocytes Slight; Segmented Neutrophils 84 % (50-85); Total Cells Counted 100
[2021-01-18 06:07] LABS: Platelet Estimate Adequate
[2021-01-18] MEDS: LACTATED RINGERS 1,000 ML IV SCH ×2 (09:16→20:22)
[2021-01-18] MEDS: methylPREDNISolone SOD SUC 40 MG/1 ML VIAL IV SCH ×2 (09:17→15:20)
[2021-01-18] MEDS: CITALOPRAM 20 MG TABLET PO SCH (09:17)
[2021-01-18] MEDS: BUDESONIDE/FORMOTEROL 160-4.5 INHALER 6 GM INH SCH ×2 (09:17→21:26)
[2021-01-18] MEDS: PANTOPRAZOLE 40 MG TABLET PO SCH (09:17)
[2021-01-18] MEDS: FLECAINIDE 50 MG TABLET PO SCH ×2 (09:18→20:16)
[2021-01-18] MEDS: LEVOFLOXACIN INJ 750 MG/150 ML PREMIX IV SCH (11:08)
[2021-01-18 11:16] LABS: ABG Base Excess 3.5 MMOL/L (-2.5-2.5); ABG HCO3 27.6 MMOL/L (20-26); ABG Oxygen Saturation 99.2 % (95-100); ABG PCO2 61.6 MM HG (35-48); ABG PH 7.319 (7.35-7.45); ABG TCO2 27.9 MMOL/L (23-27)
[2021-01-18] MEDS: MEROPENEM 500 MG in SODIUM CHLORIDE 0.9% 100 ML IV SCH ×2 (14:18→20:17)
[2021-01-18] MEDS: ACETYLCYSTEINE 20% 800 MG/4 ML VIAL RESP TX SCH (14:46)
[2021-01-18] MEDS: GABAPENTIN 300 MG CAPSULE PO SCH (20:16)
[2021-01-19] MEDS: ACETYLCYSTEINE 20% 800 MG/4 ML VIAL RESP TX SCH ×3 (00:30→14:09)
[2021-01-19] MEDS: ALBUTEROL/IPRATROPIUM 3 ML NEB RESP TX SCH ×4 (00:30→19:50)
[2021-01-19] MEDS: methylPREDNISolone SOD SUC 40 MG/1 ML VIAL IV SCH ×3 (01:01→16:04)
[2021-01-19] MEDS: MEROPENEM 500 MG in SODIUM CHLORIDE 0.9% 100 ML IV SCH ×4 (01:02→20:32)
[2021-01-19 04:36] LABS: Hematocrit 36.3 VOL% (35.7-47.0); Hemoglobin 10.8 GM/DL (12.0-16.0); Immature Granulocytes % 0.9 %; Immature Granulocytes Absolute 0.02 #; Lymphocytes # 0.2 10*3/uL (1.4-4.0); Lymphocytes % 10.2 % (21.3-54.2); Mean Corpuscular HGB Conc 29.8 GM/DL (32-36); Mean Corpuscular Volume 97.1 FL (87-102); Neutrophils % 80.9 % (38.7-73.9); Platelet Count 127 T/CUMM (130-400); Red Blood Count 3.74 MC/CUMM (3.8-5.5); Red Cell Distribution Width 13.4 % (9.3-17.3); White Blood Count 2.3 T/CUMM (4-12)
[2021-01-19 04:38] LABS: Calcium 8.7 MG/DL (8.5-10.1); Potassium 4.2 MMOL/L (3.5-5.1)
[2021-01-19] MEDS: LACTATED RINGERS 1,000 ML IV SCH ×2 (06:33→17:25)
[2021-01-19] MEDS ORDERED: GLUCAGON 1 MG VIAL IM PRN (09:24)
[2021-01-19] MEDS ORDERED: DEXTROSE 50% 25 GM/50 ML SYRINGE IV PRN (09:26)
[2021-01-19 09:57] LABS: ABG Base Excess 8.1 MMOL/L (-2.5-2.5); ABG Oxygen Saturation 99.7 % (95-100); ABG PCO2 65.1 MM HG (35-48); ABG PH 7.351 (7.35-7.45); ABG TCO2 32.5 MMOL/L (23-27)
[2021-01-19] MEDS: CITALOPRAM 20 MG TABLET PO SCH (10:51)
[2021-01-19] MEDS: PANTOPRAZOLE 40 MG TABLET PO SCH (10:51)
[2021-01-19] MEDS: BUDESONIDE/FORMOTEROL 160-4.5 INHALER 6 GM INH SCH ×2 (10:53→20:40)
[2021-01-19] MEDS: INSULIN LISPRO 100 UNIT/ML SUBCUT SCH ×3 (10:59→22:19)
[2021-01-19] MEDS: FLECAINIDE 50 MG TABLET PO SCH ×2 (11:00→20:32)
[2021-01-19] MEDS: LEVOFLOXACIN INJ 750 MG/150 ML PREMIX IV SCH (13:04)
[2021-01-19] MEDS: ACETAMINOPHEN 325 MG TABLET PO PRN ×2 (13:43→17:28)
[2021-01-19] MEDS: metFORMIN 500 MG TABLET PO SCH (16:04)
[2021-01-19] MEDS: GABAPENTIN 300 MG CAPSULE PO SCH (20:32)
[2021-01-20] MEDS: ALBUTEROL/IPRATROPIUM 3 ML NEB RESP TX SCH ×5 (00:25→19:28)
[2021-01-20] MEDS: ACETYLCYSTEINE 20% 800 MG/4 ML VIAL RESP TX SCH ×2 (00:25→07:41)
[2021-01-20] MEDS: methylPREDNISolone SOD SUC 40 MG/1 ML VIAL IV SCH ×3 (01:07→22:02)
[2021-01-20] MEDS: MEROPENEM 500 MG in SODIUM CHLORIDE 0.9% 100 ML IV SCH ×4 (01:07→22:01)
[2021-01-20] MEDS ORDERED: MORPHINE 2 MG/1 ML SYRINGE IM PRN (03:58)
[2021-01-20] MEDS ORDERED: MORPHINE 2 MG/1 ML SYRINGE IV PRN (04:16)
[2021-01-20] MEDS: LACTATED RINGERS 1,000 ML IV SCH ×2 (04:33→15:07)
[2021-01-20] MEDS: INSULIN LISPRO 100 UNIT/ML SUBCUT SCH ×4 (08:48→22:05)
[2021-01-20] MEDS: metFORMIN 500 MG TABLET PO SCH ×2 (08:49→16:40)
[2021-01-20] MEDS: PANTOPRAZOLE 40 MG TABLET PO SCH (08:49)
[2021-01-20] MEDS: CITALOPRAM 20 MG TABLET PO SCH (08:49)
[2021-01-20] MEDS: FLECAINIDE 50 MG TABLET PO SCH ×2 (08:50→22:02)
[2021-01-20] MEDS: BUDESONIDE/FORMOTEROL 160-4.5 INHALER 6 GM INH SCH ×2 (08:50→22:02)
[2021-01-20 08:54] LABS: Alanine Aminotransferase 16 U/L (13-56); Albumin 2.3 G/DL (3.4-5.0); Alkaline Phosphatase 45 U/L (45-117); Aspartate Amino Transferase 18 U/L (0-37); Bilirubin,Total < 0.39 MG/DL (0.20-1.00); Blood Urea Nitrogen 19 MG/DL (7-18); Calcium 8.6 MG/DL (8.5-10.1); Carbon Dioxide 35 MMOL/L (21-32); Estimated Glom Filtration Rate 83 ML/MIN; Glucose 123 MG/DL (74-106); Osmolality,Calculated 290.7 MOS/KG (273-304); Potassium 4.4 MMOL/L (3.5-5.1); Sodium 145 MMOL/L (136-145); Total Protein 5.6 G/DL (6.4-8.2)
[2021-01-20] MEDS ORDERED: KETOROLAC 30 MG/1 ML VIAL IV ONE (09:00)
[2021-01-20 09:26] LABS: Hematocrit 38.1 VOL% (35.7-47.0); Hemoglobin 10.9 GM/DL (12.0-16.0); Lymphocytes # 0.2 10*3/uL (1.4-4.0); Lymphocytes % 11.5 % (21.3-54.2); Mean Corpuscular HGB Conc 28.6 GM/DL (32-36); Mean Corpuscular Volume 96.9 FL (87-102); Mean Platelet Volume 9.4 FL (9.6-12.0); Monocytes % 5.8 % (1.7-12.7); Neutrophils % 81.7 % (38.7-73.9); Platelet Count 157 T/CUMM (130-400); Red Blood Count 3.93 MC/CUMM (3.8-5.5); Red Cell Distribution Width 13.5 % (9.3-17.3); White Blood Count 1.9 T/CUMM (4-12)
[2021-01-20 09:29] LABS: Band Neutrophils 2 % (0-10); Hypochromasia 1+; Lymphocytes 7 % (20-55); Microcytosis 1+; Ovalocytes Slight; Segmented Neutrophils 86 % (50-85)
[2021-01-20 09:30] LABS: Platelet Estimate Adequate
[2021-01-20 12:33] LABS: INR 3.6; PT Patient Result 37.2 SECS (10.5-12.0)
[2021-01-20] MEDS ORDERED: FUROSEMIDE 20 MG/2 ML VIAL IV ONE (16:18)
[2021-01-20] MEDS: LEVOFLOXACIN 750 MG TABLET PO SCH (16:40)
[2021-01-20] MEDS: DOCUSATE SODIUM 100 MG CAPSULE PO SCH (22:02)
[2021-01-20] MEDS: GABAPENTIN 300 MG CAPSULE PO SCH (22:02)
[2021-01-21] MEDS: ALBUTEROL/IPRATROPIUM 3 ML NEB RESP TX SCH ×2 (00:41→07:41)
[2021-01-21] MEDS: MEROPENEM 500 MG in SODIUM CHLORIDE 0.9% 100 ML IV SCH ×2 (03:38→09:36)
[2021-01-21 04:30] LABS: ABG Base Excess 11.1 MMOL/L (-2.5-2.5); ABG HCO3 34.8 MMOL/L (20-26); ABG Oxygen Saturation 96.4 % (95-100); ABG PCO2 56.4 MM HG (35-48); ABG PH 7.431 (7.35-7.45); ABG PO2 83.9 MM HG (80-95); ABG TCO2 33.7 MMOL/L (23-27); Allen Test Positive
[2021-01-21 04:57] LABS: Basophils % 0.4 % (0.0-0.8); Hematocrit 37.2 VOL% (35.7-47.0); Hemoglobin 11.1 GM/DL (12.0-16.0); Lymphocytes # 0.2 10*3/uL (1.4-4.0); Lymphocytes % 8.9 % (21.3-54.2); Mean Corpuscular HGB Conc 29.8 GM/DL (32-36); Mean Corpuscular Volume 96.4 FL (87-102); Monocytes % 4.8 % (1.7-12.7); Neutrophils % 84.8 % (38.7-73.9); Platelet Count 139 T/CUMM (130-400); Red Blood Count 3.86 MC/CUMM (3.8-5.5); Red Cell Distribution Width 13.5 % (9.3-17.3); White Blood Count 2.7 T/CUMM (4-12)
[2021-01-21 05:09] LABS: INR 3.9; PT Patient Result 40.2 SECS (10.5-12.0)
[2021-01-21 05:18] LABS: Calcium 8.9 MG/DL (8.5-10.1); Osmolality,Calculated 280.5 MOS/KG (273-304); Potassium 5.2 MMOL/L (3.5-5.1)
[2021-01-21] MEDS: INSULIN LISPRO 100 UNIT/ML SUBCUT SCH ×2 (08:13→12:24)
[2021-01-21] MEDS ORDERED: SODIUM POLYSTYRENE SULFATE 15 GM/60 ML BOTTLE PO STA (08:16)
[2021-01-21] MEDS ORDERED: predniSONE 20 MG TABLET PO SCH (09:30)
[2021-01-21] MEDS: metFORMIN 500 MG TABLET PO SCH (09:37)
[2021-01-21] MEDS: LEVOFLOXACIN 750 MG TABLET PO SCH (09:37)
[2021-01-21] MEDS: FLECAINIDE 50 MG TABLET PO SCH (09:37)
[2021-01-21] MEDS: CITALOPRAM 20 MG TABLET PO SCH (09:37)
[2021-01-21] MEDS: DOCUSATE SODIUM 100 MG CAPSULE PO SCH (09:37)
[2021-01-21] MEDS: PANTOPRAZOLE 40 MG TABLET PO SCH (09:37)
[2021-01-21] MEDS: BUDESONIDE/FORMOTEROL 160-4.5 INHALER 6 GM INH SCH (09:38)
[2021-01-21] MEDS ORDERED: POLYETHYLENE GLYCOL POWDER 17 GM PACK PO SCH (11:00)
[2021-01-21 11:54] VITALS: BP 118/60
[2021-01-21] MEDS: methylPREDNISolone SOD SUC 40 MG/1 ML VIAL IV SCH (12:26)
[2021-01-21 12:48] LABS: Calcium 8.6 MG/DL (8.5-10.1); Potassium 3.9 MMOL/L (3.5-5.1)
== END 2021-01-21 14:33 | disposition home health service (06) | DRG 189 ==
LOC: N.ED 06:25 → SUATTDRO 10:57 → N.5E 10:57
PROVIDERS: ADMIT Internal Medicine; ATTEND Internal Medicine